=== PATIENT | female | born 1995 | race African-American/Black ===

== ENCOUNTER 2018-11-12 00:31 | Emergency (ER) | payer OTHER ==
[~2018-11-12] VITALS: Ht 160 cm; Wt 59.0 kg
[2018-11-12] MEDS ORDERED: BACITRACIN ZINC OINT UDPKT TOP ONE (01:00)
[2018-11-12] MEDS ORDERED: LIDOCAINE 1%/EPI 1:100,000 10 ML VIAL IJ ONE (01:00)
[2018-11-12] MEDS ORDERED: IBUPROFEN 600MG TABLET PO ONE (01:45)
[2018-11-12 02:57] VITALS: BP 117/57
== END 2018-11-12 02:59 | disposition home or self-care (01) ==
LOC: ER 00:31
DX: S71.111A Laceration without foreign body, right thigh, initial encounter (principal); W26.8XXA Contact with other sharp object(s), not elsewhere classified, initial encounter; Y93.89 Activity, other specified; Y92.488 Other paved roadways as the place of occurrence of the external cause
CPT/HCPCS: 12004; 73552; 99284; Z7610; 99283; J3490

== ENCOUNTER 2023-07-29 17:27 | Emergency (ER) | payer OTHER ==
[~2023-07-29] VITALS: Ht 165.1 cm; Wt 85.0 kg
[2023-07-29 17:30] VITALS: O2SAT 98
[2023-07-29] MEDS ORDERED: ONDANSETRON 4MG ODT PO ONE (17:45)
[2023-07-29] MEDS ORDERED: ONDANSETRON 4MG ODT PO NR (17:45)
[2023-07-29 18:22] LABS: BASOPHILS % 0.7 % (0.0-2.0); EOSINOPHILS % 1.3 % (0.0-5.0); HEMATOCRIT. 36.1 % (36.0-48.0); LYMPHOCYTES % 32.8 % (20.0-50.0); MEAN CORPUSCULAR HEMOGLOBIN 29.8 pg (28.0-32.0); MEAN CORPUSCULAR HGB CONC 33.3 g/dL (31.0-37.0); MEAN CORPUSCULAR VOLUME 89.5 fL (81.0-99.0); MEAN PLATELET VOLUME 7.1 fl (7.4-10.4); NEUTROPHILS % 56.2 % (40.0-76.0); PLATELET 331 x1000/uL (130-400); RED BLOOD CELL COUNT 4.03 mill/uL (4.2-5.4); RED CELL DISTRIBUTION WIDTH 14.2 % (11.6-14.6); WHITE BLOOD COUNT 7.4 x1000/uL (4.5-11.0)
[2023-07-29 18:25] LABS: CHLORIDE 105 mEq/L (98-107); INDEX HEMOLYSI 2 (1-3); INDEX ICTERIC 1 (1-4); INDEX LIPEMIC 1 (1-3); POTASSIUM 3.5 mEq/L (3.5-5.1); SODIUM 138 mEq/L (136-145)
[2023-07-29 18:35] LABS: ALANINE AMINOTRANSFERASE 32 IU/L (13-61); ALBUMIN 3.3 g/dL (3.4-5.0); ASPARTATE AMINOTRANSFERASE 23 IU/L (15-37); BILIRUBIN TOTAL 0.1 mg/dL (0.1-1.0); CALCIUM 8.7 mg/dL (8.5-10.1); CARBON DIOXIDE 27 mEq/L (21-32); CREATININE 0.6 mg/dL (0.6-1.3); GLUCOSE 127 mg/dL (70-105); PROTEIN TOTAL 7.9 g/dL (6.0-8.3); TROPONIN I HIGH SENSITIVITY 4 ng/L (<54); UREA NITROGEN BLOOD 8 mg/dL (7-21)
[2023-07-29 18:36] LABS: HCG SCREEN NEGATIVE
[2023-07-29 20:18] VITALS: BP 118/66; PULSE 64; RESP 18; TEMP 98.2
[2023-07-29 20:39] LABS: TROPONIN I HIGH SENSITIVITY 4 ng/L (<54)
== END 2023-07-29 20:20 | disposition home or self-care (01) ==
LOC: ER 17:27
DX: R07.89 Other chest pain (principal)
CPT/HCPCS: 99285; 71045; 80053; 84703; 85025; 84484; 36415; 93005; Q0162